=== PATIENT | male | born 1980 | race Caucasian/White ===

== ENCOUNTER 2018-06-02 11:00 | Outpatient (CLI) | payer OTHER ==
[2016-08-14 23:06] VITALS: BP 155/92
[2018-06-02 11:48] LABS: eGFR (Non-African) > 60
== END 2018-06-02 11:02 ==
LOC: LAB 11:00
PROVIDERS: ATTEND Physician Assistant
DX: R10.9 Unspecified abdominal pain (principal)
CPT/HCPCS: 36415; 80053

== ENCOUNTER 2018-06-10 16:09 | Emergency (ER) | payer OTHER ==
--- NOTE | 2018-06-10 16:16 | ED Physician Documentation ---
Hand Injury - HISTORIAN Historian: patient - HPI Stated Complaint: left hand middle finger pain Chief Complaint: Hand Injury Onset: just prior to arrival Where: other (on a rope swing) Severity: mild Duration: persistent since Context: other (when he jumped out he caught his finger on the swing ) Modifying Factors: pain on movement Further Comments: yes (tourettes) - ROS CONST: no problems - PAST HX Past History: other (tourettes syndrome ) Allergies/Adverse Reactions: Allergies Allergy/AdvReac Type Severity Reaction Status Date / Time morphine Allergy Verified 06/10/18 16:25 Home Medications: Ambulatory Orders Medication Instructions Recorded LORazepam [Ativan] 1 mg PO Q8H PRN #6 tablet 08/14/16 Gabapentin 100 mg PO TID av 06/02/18 Hydroxyzine HCl 25 mg PO TID u2 06/02/18 Risperidone 0.5 mg PO HS u2 06/02/18 - SOCIAL HX Smoking History: cigarettes Alcohol Use: occasionally Drug Use: none - FAMILY HX Family History: none - VITAL SIGNS Vital Signs: Vital Signs Temp Pulse Resp BP Pulse Ox 155/92 08/14/16 23:04 - REVIEWED ASSESSMENTS Nursing Assessment Reviewed: Yes Vitals Reviewed: Yes ED Results Lab/Radiology - Radiology Radiology Impressions: Examination: Plain film left hand History: LEFT HAND, PAIN IN LEFT 3RD DIGIT AFTER GETTING FINGER CAUGHT IN A ROPE 2 DAYS AGO (Hx) Comparison exams: None available Findings: 3 views of the left hand demonstrate normal cortical margins. No fracture. No dislocation. Specifically the 3rd digit without cortical abnormality. No soft tissue abnormality. Impression: No acute osseous abnormality Electronically signed on Jun 10, 2018 5:04:56 PM CDT by: Reed Varela Hand Injury Physical Exam - Exam General Appearance: no acute distress, alert Hand: nml inspection, other (mild swelling on entire middle finger of left hand FROM + painful with resistence. pulses and sensation + ) Neuro: sensation nml, motor nml Vascular: no vascular compromise Tendons: tendon function nml Forearm/Elbow/Arm: uninjured above wrist Skin: warm/dry, normal color Head/ENT: nml inspection Neck/Back: nml inspection Resp/CVS: chest non-tender, breath sounds nml, heart sounds nml, no resp. distress, lungs clear, reg. rate & rhythm Abdomen: non-tender Discharge Clincal Impression: Hand pain Qualifiers: Laterality: left Qualified Code(s): M79.642 - Pain in left hand Referrals: Dena Duke PA [Primary Care Provider] - 2 Days Additional Instructions: 1. Tylenol or Ibuprofen as directed for pain 2. Continue to move finger 3. Ice as needed for swelling 4. Follow up with PCP in 2-4 days if no improvement 5. Return to ER for any concerns Condition: Stable Disposition: 01 HOME, SELF-CARE Decision to Admit: NO Date of Decison to Admit: 06/10/18 Decision Time: 17:10
[2018-06-10 16:25] VITALS: BP 142/84
--- NOTE | 2018-06-10 19:09 | Diagnostic Imaging Report ---
KIAA REZA [facility] [id number] [facility] [address] [address] Report Submission Date: Jun 10, 2018 5:04:56 PM CDT Patient Study Name: NAM SALGADO Date: Jun 10, 2018 4:34:11 PM CDT Modality Type: DX Gender: M Description: UPPER EXTREMITY : 84 Institution: [facility] Physician: KAIA REZA Examination: Plain film left hand History: LEFT HAND, PAIN IN LEFT 3RD DIGIT AFTER GETTING FINGER CAUGHT IN A ROPE 2 DAYS AGO (Hx) Comparison exams: None available Findings: 3 views of the left hand demonstrate normal cortical margins. No fracture. No dislocation. Specifically the 3rd digit without cortical abnormality. No soft tissue abnormality. Impression: No acute osseous abnormality Electronically signed on Jun 10, 2018 5:04:56 PM CDT by: Reed COMBS
== END 2018-06-10 17:15 | disposition home or self-care (01) ==
LOC: ED 16:09
DX: M79.642 Pain in left hand (principal)
CPT/HCPCS: 73130; 99282

== ENCOUNTER 2018-06-23 13:26 | Outpatient (CLI) | payer OTHER | END 2018-06-23 13:28 | LOC: LAB 13:26 | PROVIDERS: ATTEND Physician Assistant | DX: R73.9 Hyperglycemia, unspecified (principal); E74.39 Other disorders of intestinal carbohydrate absorption | CPT/HCPCS: 36415; 83036 ==

== ENCOUNTER 2018-06-24 19:59 | Emergency (ER) | payer OTHER ==
--- NOTE | 2018-06-24 20:14 | ED Physician Documentation ---
Psychological Disorders - HISTORIAN Historian: patient - HPI Stated Complaint: suicidal Chief Complaint: Psychological Disorder Onset: other (he is not sure how long ) Duration: constant Intent: suicide Severity: mild Situational Problems: Yes (he has medical issues he feels "are too much" ) Further Comments: yes (He states that he has tourettes and it is "too much for him now") - Associated Symptoms Symptoms: depressed, frustrated, agitated, hallucinating (he talks to "ruthie ") Suicidal: specific plan (hang himself) - ROS CONST: none NEURO/PSYCH: anxiety, depression EYES/ENT: none CVS/RESP: none MS/SKIN/LYMPH: denies: rash - PAST HX Psychiatric problems: other (Tourettes, bi polar and anxiety ) Immunizations: referred to PCP - Social HX Marital Status: single Drug Use: none - Family HX Family HX: other - REVIEWED ASSESSMENTS Nursing Assessment Reviewed: No Vitals Reviewed: No <Rekha Mckinney - Last Filed: 06/25/18 07:00> - Social HX Smoking History: cigarettes Marital Status: () Drug Use: other (alcohol abuse) - REVIEWED ASSESSMENTS Nursing Assessment Reviewed: Yes Vitals Reviewed: Yes <Adán Wheeler - Last Filed: 06/25/18 19:45> - PAST HX Allergies/Adverse Reactions: Allergies Allergy/AdvReac Type Severity Reaction Status Date / Time morphine Allergy Verified 06/24/18 20:17 Home Medications: Ambulatory Orders Medication Instructions Recorded Gabapentin 100 mg PO TID av 06/02/18 Hydroxyzine HCl 25 mg PO TID u2 06/02/18 Risperidone 0.5 mg PO HS u2 06/02/18 - VITAL SIGNS Vital Signs: Vital Signs Temp Pulse Resp BP Pulse Ox 98.6 F 66 18 123/66 06/24/18 20:15 06/25/18 17:23 06/25/18 17:23 06/25/18 17:23 Progress <Rekha Mckinney - Last Filed: 06/25/18 07:00> <Adán Wheeler - Last Filed: 06/25/18 19:45> - Progress Progress: 2229: He has had about a pint of whiskey after discussion. This is daily for him after specifically about drinking which he previously denied any drinking. He is aware he will be staying in the facility until his alcohol level is acceptable for a psychiatric facility. DG 0015: resting quietly in room DG 0200: resting quietly in room DG 0535: resting quietly in room. DG 0700: Care turned over to Dr Denson DG 0200: Have been unable to place pt after numerous attempts. 1700 Pt is sober and denies suicidality. Unable to place unless suicidal/homicidal. Parents in ER, agree to d/c home. F/u with primary/psych providers. Continue home meds. Cut File Clerk to call pt with options re: alcohol rehab. Continue home meds. (Rekha Mckinney) 2230: He has had about a pint of whiskey after discussion. This is daily for him after specifically about drinking which he previously denied any drinking. He is aware he will be staying in the facility until his alcohol level is acceptable for a psychiatric facility. DG 0015: resting quietly in room DG 0200: resting quietly in room DG 0535: resting quietly in room. DG 0700: Care turned over to Dr Denson DG 0200: Have been unable to place pt after numerous attempts. 1700 Pt is sober and denies suicidality. Unable to place unless suicidal/homicidal. Parents in ER, agree to d/c home. F/u with primary/psych providers. Continue home meds. Cut File Clerk to call pt with options re: alcohol rehab. Continue home meds. d/c with parents. (Adán Wheeler) - Lab Results Lab Results: Lab Results 06/25/18 06/24/18 06/24/18 06:13 22:10 22:10 WBC Comment RBC Hemoglobin (Send Out) Hct (Send Out) MCV (Send Out) MCH MCHC (Send Out) RDW Coeff of Kelsi Plt Count Absolute Lymphs (auto) Absolute Monos (auto) Absolute Basos (auto) Neutrophils % Absolute Neutrophils Lymphocytes Monocytes Absolute Eosinophils Basophilia % Eosinophil Count Sodium Potassium Chloride Carbon Dioxide BUN Creatinine Estimated Creat Clear Est GFR ( Amer) Est GFR (Non-Af Amer) Glucose Calcium Total Bilirubin AST ALT Alkaline Phosphatase Total Protein Albumin TSH Free T4 Index Free T3 Index Urine Color Yellow (YELLOW) Urine Appearance Clear (CLEAR) Urine pH 5.5 (5.0 - 8.0) Ur Specific [place] 1.015 (1.010-1.030) Urine Protein Negative mg/dL mg/dL (NEGATIVE) Urine Ketones Negative mg/dL mg/dL (NEGATIVE) Urine Occult Blood Trace-intact H (NEGATIVE) Urine Nitrite Negative (NEGATIVE) Urine Bilirubin Negative (NEGATIVE) Urine Urobilinogen 0.2 Eu Eu (0.2-1.0) Ur Leukocyte Esterase Negative (NEGATIVE) Urine Glucose Negative mg/dL mg/dL (NEGATIVE) Opiates Screen Negative ng/mL ng/mL (<300) Oxycodone Screen Negative ng/mL ng/mL (<100) Methadone Screen Negative ng/mL ng/mL (<200) Ur Barbiturates Screen Negative ng.mL ng.mL (<200) Tricyclic Antidepress Non negative ng/mL H ng/mL (<300) Phencyclidine Screen Negative ng/mL ng/mL (< 25) Amphetamines Screen Negative ng/mL ng/mL (<500) U Methamphetamines Scrn Negative ng/mL ng/mL (<500) MDMA Negative ng/mL ng/mL (<500) Benzodiazepines Screen Negative ng/mL ng/mL (<150) Urine Cocaine Screen Negative ng/mL ng/mL (<150) U Cannabinoids Screen Negative ng/mL ng/mL (< 50) Ethyl Alcohol 100.7 mg/dL H mg/dL (0.0-10.0) 06/24/18 06/24/18 06/24/18 21:48 21:48 21:48 WBC Comment 8.44 thou/uL thou/uL (4.00-12.00) RBC 4.82 mil/uL mil/uL (3.80-5.80) Hemoglobin (Send Out) 15.3 g/dL g/dL (12.0-18.0) Hct (Send Out) 44.5 % % (37.0-53.0) MCV (Send Out) 92.4 fL fL (80.0-100.0) MCH 31.7 pg pg (28.0-34.0) MCHC (Send Out) 34.4 g/dL g/dL (30.0-36.0) RDW Coeff of Kelsi 15.0 % H % (11.3-14.7) Plt Count 200 thou/uL thou/uL (130-400) Absolute Lymphs (auto) 3.39 thou/uL thou/uL (0.60-4.00) Absolute Monos (auto) 0.61 thou/uL thou/uL (0.00-0.90) Absolute Basos (auto) 0.05 thou/uL thou/uL (0.00-0.50) Neutrophils % 49.7 % % (39.0-79.0) Absolute Neutrophils 4.19 thou/uL thou/uL (1.50-7.70) Lymphocytes 40.2 % % (16.0-50.0) Monocytes 7.2 % % (0.0-11.0) Absolute Eosinophils 0.19 thou/uL thou/uL (0.00-0.60) Basophilia % 0.6 % % (0.0-1.5) Eosinophil Count 2.3 % % (0.0-6.8) Sodium 135 mmol/L L mmol/L (136-145) Potassium 4.1 mmol/L mmol/L (3.5-5.1) Chloride 112 mmol/L H mmol/L (98-107) Carbon Dioxide 21 mmol/L L mmol/L (22-30) BUN 8 mg/dL L mg/dL (9-20) Creatinine 0.90 mg/dL mg/dL (0.66-1.25) Estimated Creat Clear 109 Est GFR ( Amer) > 60 (60 - ) Est GFR (Non-Af Amer) > 60 (60 - ) Glucose 90 mg/dL mg/dL (74-106) Calcium 8.8 mg/dL mg/dL (8.4-10.2) Total Bilirubin 0.4 mg/dL mg/dL (0.2-1.3) AST 45 U/L U/L (15-46) ALT 60 U/L U/L (13-69) Alkaline Phosphatase 96 U/L U/L (38-126) Total Protein 8.2 g/dL g/dL (6.3-8.2) Albumin 4.5 g/dL g/dL (3.5-5.0) TSH 2.850 uIU/mL uIU/mL (0.270-4.200) Free T4 Index 1.39 ng/dL ng/dL (0.93-1.70) Free T3 Index 4.14 pg/mL pg/mL (2.00-4.40) Urine Color Urine Appearance Urine pH Ur Specific [place] Urine Protein Urine Ketones Urine Occult Blood Urine Nitrite Urine Bilirubin Urine Urobilinogen Ur Leukocyte Esterase Urine Glucose Opiates Screen Oxycodone Screen Methadone Screen Ur Barbiturates Screen Tricyclic Antidepress Phencyclidine Screen Amphetamines Screen U Methamphetamines Scrn MDMA Benzodiazepines Screen Urine Cocaine Screen U Cannabinoids Screen Ethyl Alcohol 268.4 mg/dL H mg/dL (0.0-10.0) - Orders Orders: ED Orders Category Date Time Status IV Started NOW Care 06/24/18 21:09 Active IV Started NOW Care 06/24/18 22:18 Active Investment Accountant Consult [CONS] Routine Cons 06/25/18 Ordered ALCOHOL MEDICAL USE ONLY Stat Lab 06/24/18 21:48 Completed ALCOHOL MEDICAL USE ONLY Stat Lab 06/25/18 06:13 Completed CBC REF Stat Lab 06/24/18 21:48 Completed CMP Stat Lab 06/24/18 21:48 Completed THYROID PANEL (TSH, FT3, FT4) Stat Lab 06/24/18 21:48 Completed UA MACRO DIP ONLY Routine Lab 06/24/18 22:10 Completed UDS [DRUG SCREEN URINE MEDICAL ONLY] Routine Lab 06/24/18 22:10 Completed 0.9 % Sodium Chloride [Normal Saline] 1,000 ml Med 06/25/18 01:15 Discontinued IV .STK-MED 0.9 % Sodium Chloride [Normal Saline] 1,000 ml Med 06/24/18 22:19 Discontinued IV Q1H 0.9 % Sodium Chloride [Normal Saline] 1,000 ml Med 06/25/18 00:45 Discontinued IV Q1H Folic Acid [Folvite] Med 06/25/18 01:16 Discontinued 5 mg .ROUTE .STK-MED ONE Multivit Infusn,Adult 1,Vit K [M.v.i. Adult] Med 06/25/18 01:16 Discontinued 10 ml IV .STK-MED ONE Thiamine HCl Med 06/25/18 01:15 Discontinued 200 mg .ROUTE .STK-MED ONE Thiamine HCl 100 mg Med 06/25/18 00:45 Discontinued Multivit Infusn,Adult 1,Vit K [M.v.i. Adult] 10 ml Folic Acid [Folvite] 5 mg 0.9 % Sodium Chloride [Normal Saline] 1,000 ml IV NOW EKG WITH COMPARISON Stat Ther 06/24/18 Ordered Psych Physical Exam - Physical Exam General Appearance: no acute distress, alert ENT: nml ENT inspection Eyes: PERRL Mental Status: depressed affect / mood Suicide Attempts: denies, still contemplating Orientation: nml x3 Cranial Nerves: CN's intact as tested Sensory, Motor: nml motor response, other (with the tourettes he yells out and has constant hand movement ) Neck/Back: normal inspection Respiratory: no resp distress, chest non-tender, breath sounds normal CVS: reg rate & rhythm Skin: warm/dry, normal color Extremities: non-tender, no edema <Rekha Mckinney - Last Filed: 06/25/18 07:00> Discharge <Rekha Mckinney - Last Filed: 06/25/18 07:00> Decision to Admit: NO Decision Time: 19:42 <Adán Wheeler - Last Filed: 06/25/18 19:45> Clincal Impression: bipolar d/o, Tourette's, Alcohol abuse Referrals: Dena Duke PA [Primary Care Provider] - Condition: Stable Disposition: 01 HOME, SELF-CARE
[2018-06-24 22:08] LABS: eGFR (Non-African) > 60
[2018-06-24] MEDS ORDERED: 0.9 % SODIUM CHLORIDE 1,000 ML IV ONE (22:19)
[2018-06-24 23:01] LABS: BASO % 0.6 % (0.0-1.5); EOS % 2.3 % (0.0-6.8); LYMPH ABS # 3.39 thou/uL (0.60-4.00); MCH. 31.7 pg (28.0-34.0); MCV 92.4 fL (80.0-100.0); MONOCYTE % 7.2 % (0.0-11.0); MONOCYTE ABS # 0.61 thou/uL (0.00-0.90); PLATELET COUNT 200 thou/uL (130-400)
[2018-06-25] MEDS ORDERED: 0.9 % SODIUM CHLORIDE 1,000 ML IV ONE ×2 (00:45→01:15)
[2018-06-25] MEDS ORDERED: THIAMINE HCL 100 MG, MULTIVIT INFUSN,ADULT 1,VIT K 10 ML, FOLIC ACID 5 MG in 0.9 % SODI... IV ONE (00:45)
[2018-06-25] MEDS ORDERED: THIAMINE HCL 100 MG/ML 2ML VIAL ONE (01:15)
[2018-06-25] MEDS ORDERED: MULTIVIT INFUSN,ADULT 1,VIT K 10 ML VIAL IV ONE (01:16)
[2018-06-25] MEDS ORDERED: FOLIC ACID 5 MG/1 ML ONE (01:16)
[2018-06-25 04:22] LABS: APPEARANCE,URINE CLEAR (CLEAR); COLOR,URINE YELLOW (YELLOW); OCCULT BLOOD,URINE TRACE-INTACT (NEGATIVE); PH URINE 5.5 (5.0 - 8.0); UROBILINOGEN URINE 0.2 Eu (0.2-1.0)
[2018-06-25 04:23] LABS: CANNABINOIDS NEGATIVE ng/mL (< 50); METHYLENEDIOXYMETHAMPHETAMINE NEGATIVE ng/mL (<500)
[2018-06-25 17:37] VITALS: BP 123/66
== END 2018-06-25 17:07 | disposition home or self-care (01) ==
LOC: ED 19:59
DX: F31.9 Bipolar disorder, unspecified (principal); R45.851 Suicidal ideations; F95.2 Tourette's disorder; F10.10 Alcohol abuse, uncomplicated; F32.9 Major depressive disorder, single episode, unspecified
CPT/HCPCS: 80053; 80320; 80377; 81002; 84439; 84443; 84481; 85025; J3411; J3490; J7030; 96365; 96366; 96367; 99285; G0480; G0481; S1016